=== PATIENT | male | born 1940 | race Caucasian/White ===

== ENCOUNTER 2020-12-02 16:10 | Emergency (ER) | payer MEDICARE ==
[~2020-12-02] VITALS: Ht 177.8 cm; Wt 79.4 kg
--- NOTE | 2020-12-02 16:23 | NUR ---
ER at bedside examining patient.
[2020-12-02 16:30] VITALS: BP_SYST 143
--- NOTE | 2020-12-02 16:31 | NUR ---
Placed in room 1 . Placed on hospital monitor, blood pressure machine and pulse oximeter. To gown for exam. Side rails up.
--- NOTE | 2020-12-02 16:40 | NUR ---
Note undone in EDM - 12/02/20 at 1819 by [email or web address] Pt BIBA for fall out of bed. Per pt he was sleeping and fell and hit his dresser and "thinks" he has LOC. Pt is alert and oriented x3 but has periods of confusion. Pt has abrasion to the [place]. Perrla and VSS. No distress noted.
--- NOTE | 2020-12-02 17:04 | NUR ---
pt taken to ct in stable condition.
[2020-12-02 17:41] LABS: BASOPHILS # (AUTO) 0.1 K/uL (0.0-0.2); EOSINOPHILS # (AUTO) 0.4 K/uL (0.0-0.4); EOSINOPHILS % (AUTO) 4.4 % (0.0-4.0); HEMATOCRIT 38.4 % (36-54); HEMOGLOBIN 12.7 g/dL (14.0-18.0); LYMPHOCYTES # (AUTO) 1.6 K/uL (1.0-5.5); LYMPHOCYTES % (AUTO) 19.6 % (20.5-51.5); MEAN CORPUSCULAR HEMOGLOBIN 30 pg (27-31); MEAN CORPUSCULAR HGB CONC 33 % (32-36); MEAN CORPUSCULAR VOLUME 92 fL (79.0-98.0); MONOCYTES # (AUTO) 0.8 K/uL (0.0-1.0); NEUTROPHILS # (AUTO) 5.2 K/uL (1.8-7.7); PLATELET COUNT (AUTO) 272 K/uL (130-430); RED BLOOD CELL COUNT(AUTO) 4.19 MIL/uL (4.2-6.2); RED CELL DISTRIBUTION WIDTH 14.3 % (9.0-15.0)
[2020-12-02 17:51] LABS: ALANINE AMINOTRANSFERASE 22 U/L (12-78); ALBUMIN 3.3 g/dL (3.4-4.8); ANION GAP 2 (5-15); ASPARTATE AMINOTRANSFERASE 21 U/L (10-37); CALCIUM 9.1 mg/dL (8.4-11.0); CHLORIDE 104 mmol/L (98-107); CREATININE 1.61 mg/dL (0.55-1.30); GLUCOSE 105 mg/dL (70-99); POTASSIUM 4.6 mmol/L (3.5-5.1); SODIUM SERUM 137 mmol/L (136-145); TOTAL BILIRUBIN 0.3 mg/dL (0.0-1.0); UREA NITROGEN, BLOOD 40 mg/dL (8-21)
--- NOTE | 2020-12-02 18:17 | NUR ---
Pt BIBA for fall out of bed. Per pt he was sleeping and fell and hit his dresser and "thinks" he has LOC. Pt is alert and oriented x3 but has periods of confusion. Pt has abrasion to the [place]. Perrla and VSS. No distress noted.
--- NOTE | 2020-12-02 18:20 | NUR ---
# 20 gauge angiocath placed to RAC. Use of asceptic technique. Opsite placed over site. Blood return noted. Blood for lab drawn from site. Flushed with 10 cc of normal saline. No evidence of infiltration noted. Patient tolerated well.
--- NOTE | 2020-12-02 18:20 | NUR ---
changed pts bedding from urine and stool.
--- NOTE | 2020-12-02 18:37 | NUR ---
Pt resting in bed. No signs of distress noted.
[2020-12-02 19:14] VITALS: BP_SYST 143
--- NOTE | 2020-12-02 19:19 | NUR ---
Patient given written and verbal discharge instructions and verbalizes understanding. ER MD discussed with patient the results and treatment provided. Patient in stable condition. ID arm band removed. IV catheter removed intact and dressing applied, no active bleeding. No prescriptions given. Patient educated on pain management and to follow up with PMD. Pain Scale 0. Opportunity for questions provided and answered. Medication side effect fact sheet provided.
== END 2020-12-02 19:10 | disposition home or self-care (01) ==
LOC: SED 16:10
DX: S09.90XA Unspecified injury of head, initial encounter (principal); W18.39XA Other fall on same level, initial encounter; Y93.89 Activity, other specified; Y92.89 Other specified places as the place of occurrence of the external cause; Y99.8 Other external cause status
CPT/HCPCS: 36415; 70450-TC; 71045; 72125-TC; 76376; 80053; 83880; 84484; 85025; 85379; 99285